=== PATIENT | male | born 1995 | race Caucasian/White ===

== ENCOUNTER 2017-05-28 18:20 | Emergency (ER) | payer OTHER ==
[~2017-05-28] VITALS: Ht 193 cm; Wt 94.7 kg
[2017-05-28] MEDS ORDERED: LORazepam 2 MG/ML, 1ML ONE (18:50)
[2017-05-28 18:53] LABS: HEMATOCRIT 44.9 % (39.2-51.8); HEMOGLOBIN 15.5 g/dL (13.7-18.0); WHITE BLOOD COUNT 7.8 x10^3/uL (4.5-13.2)
[2017-05-28] MEDS ORDERED: SODIUM CHLORIDE FLUSH 10ML SYR IVF ONE ×2 (19:00)
[2017-05-28] MEDS ORDERED: SODIUM CHLORIDE 0.9% 1,000ML IVBOLUS ONE (19:00)
[2017-05-28] MEDS ORDERED: LORazepam 2 MG/ML, 1ML IVPush ONE (19:00)
[2017-05-28 19:05] LABS: BLOOD UREA NITROGEN 10 mg/dL (7-18)
[2017-05-28 19:16] LABS: DAU SCREEN DISCLAIMER
[2017-05-28 21:26] VITALS: BP 115/64
== END 2017-05-28 21:33 | disposition home or self-care (01) ==
LOC: ED 20:00
DX: R00.2 Palpitations (principal)
CPT/HCPCS: 36415; 71010; 80048; 80307; 82040; 83735; 84436; 84443; 85025; 93005; 96361; 96374; 99285; J2060; J7030; G0479

== ENCOUNTER 2017-11-19 02:46 | Emergency (ER) | payer OTHER ==
[~2017-11-19] VITALS: Ht 193 cm; Wt 95.0 kg
[2017-11-19] MEDS ORDERED: KETOROLAC 30 MG/1 ML IVPush ONE (03:30)
[2017-11-19] MEDS ORDERED: KETOROLAC 30 MG/1 ML ONE (03:41)
[2017-11-19 04:34] LABS: BASOPHILS # (AUTO) 0.08 x10^3/uL (0-0.1); BASOPHILS % (AUTO) 1 % (0-1); EOSINOPHILS # (AUTO) 0.07 x10^3/uL (0-0.4); EOSINOPHILS % (AUTO) 1 % (1-7); LYMPHOCYTES # (AUTO) 1.92 x10^3/uL (1-3.4); LYMPHOCYTES % (AUTO) 29 % (22-44); MD NO; MEAN CORPUSCULAR HEMOGLOBIN 31.1 pg (27.5-34.5); MEAN CORPUSCULAR VOLUME 88.9 fL (81-97); MEAN PLATELET VOLUME 8.1 fL (7.4-10.4); MONOCYTES # (AUTO) 0.45 x10^3/uL (0.2-0.8); MONOCYTES % (AUTO) 7 % (2-9); NEUTROPHILS # (AUTO) 4.04 x10^3/uL (1.8-6.8); NEUTROPHILS % (AUTO) 62 % (42-75); PLATELET COUNT 241 x10^3/uL (130-400); RED BLOOD COUNT 4.82 x10^6/uL (4.38-5.82)
[2017-11-19 04:41] LABS: ALANINE AMINOTRANSFERASE 22 U/L (12-78); ALBUMIN 4.3 g/dL (3.4-5.0); ANION GAP 6 mmol/L (5-15); CALCIUM 8.9 mg/dL (8.5-10.1); CHLORIDE 109 mmol/L (98-107); CREATININE 0.89 mg/dL (0.7-1.3)
[2017-11-19 04:43] LABS: ALKALINE PHOSPHATASE 55 U/L (45-117); BILIRUBIN,TOTAL 0.6 mg/dL (0.2-1.0); TOTAL PROTEIN 7.3 g/dL (6.4-8.2)
[2017-11-19 05:44] LABS: MICROSCOPIC NOT IND
[2017-11-19 05:52] LABS: CULTURE INDICATED? NO
[2017-11-19 06:47] VITALS: BP 124/88
== END 2017-11-19 06:48 | disposition home or self-care (01) ==
LOC: ED 03:38
DX: R10.11 Right upper quadrant pain (principal)
CPT/HCPCS: 36415; 71045; 76700; 80053; 81003; 83690; 85025; 96374; 99285; J1885